=== PATIENT | female | born 1945 | race Caucasian/White ===

== ENCOUNTER 2017-11-18 06:09 | Day surgery (SDC) | payer MEDICARE, OTHER ==
[~2017-11-18 06:09] MED LIST: Sodium Chloride 0.9% 10 ML Syringe FLUSH PRN
[2017-11-18] MEDS ORDERED: fentaNYL 100 MCG/2 ML SDV IV ONE ×2 (06:10→07:18)
[2017-11-18] MEDS ORDERED: Midazolam 1 MG/ML 2 ML SDV IV ONE ×7 (06:10→07:31)
[2017-11-18] MEDS ORDERED: Midazolam 1 MG/ML 2 ML SDV ONE (06:13)
[2017-11-18] MEDS ORDERED: fentaNYL 100 MCG/2 ML SDV ONE (06:13)
[2017-11-18] MEDS ORDERED: Dextrose 5%-0.45% NaCl 1,000 ML IV SCH (07:30)
[2017-11-18 12:02] VITALS: BP 138/63
--- NOTE | 2017-11-18 12:55 | OR ---
DATE: 11/18/2017 PROCEDURE: Total colonoscopy. INSTRUMENT USED: PCF-H180 AL Olympus video colonoscope. PREMEDICATIONS: Fentanyl 100 mcg intravenous, Versed 4 mg intravenous. Nasal O2 cannula. The procedure was done under pulse oximetry, BP recording, and potline monitor. INDICATION: The patient with rectal bleeding. Colonoscopic examination is done for detection of any polypoid lesions and removal, endoscopic hemostasis therapy if needed. DESCRIPTION OF PROCEDURE: Initial rectal exam was unremarkable. Rigid anoscopy showed small internal hemorrhoids without bleeding from them. The colonoscope was passed with ease. Numerous scattered diverticula were noted in the distal left colon along with deformity. The scope was passed with relative ease up to the ileocecal area. Photographs were taken of the normal- appearing cecum identified by landmarks of appendiceal orifice and double-bulged ileocecal folds. There was large amount of fecal material that had to be aspirated here for better visualization. No bleeding was noted from any of the visualized areas at the commencement of the examination. The colon was found to be tortuous and redundant. No stricture. No vascular ectasia. No large isolated ulcerations seen. No evidence of diffuse inflammatory bowel disease in the form of friability, contact bleeding, or ulcerations. No polyp or tumor mass identified. Probing the proximal sides of folds and flexures, using adequate distention and clearing up the stool material, withdrawal of the scope was made. [id number] time over 6 minutes. No bleeding was noted from any of the visualized areas at the completion of examination. IMPRESSION: 1. Internal hemorrhoids. 2. Diverticulosis. The patient tolerated the procedure well. [facility] /[id number]
== END 2017-11-18 09:45 | disposition home or self-care (01) ==
LOC: DL.ENDO 06:09
PROVIDERS: ATTEND Internal Medicine Gastroenterology
DX: K62.5 Hemorrhage of anus and rectum (principal); K64.8 Other hemorrhoids; K57.30 Diverticulosis of large intestine without perforation or abscess without bleeding; I10 Essential (primary) hypertension; E11.9 Type 2 diabetes mellitus without complications; E78.00 Pure hypercholesterolemia, unspecified; E03.9 Hypothyroidism, unspecified; K55.20 Angiodysplasia of colon without hemorrhage; K21.9 Gastro-esophageal reflux disease without esophagitis; M81.0 Age-related osteoporosis without current pathological fracture; M19.90 Unspecified osteoarthritis, unspecified site; Z88.1 Allergy status to other antibiotic agents; Z88.2 Allergy status to sulfonamides; Z88.8 Allergy status to other drugs, medicaments and biological substances; Z90.710 Acquired absence of both cervix and uterus; Z98.890 Other specified postprocedural states; Z80.0 Family history of malignant neoplasm of digestive organs
CPT/HCPCS: 45378; J2250; J3010; J7042

== ENCOUNTER 2021-11-11 05:19 | Day surgery (SDC) | payer MEDICARE, OTHER ==
[~2021-11-11 05:19] MED LIST changes: -Sodium Chloride 0.9% 10 ML Syringe FLUSH PRN; +Sodium Chloride 0.9% 10 ML Syringe FLUSH SCH
[2021-11-11] MEDS ORDERED: Midazolam 1 MG/ML 2 ML SDV IV ONE ×6 (05:20→06:37)
[2021-11-11] MEDS ORDERED: fentaNYL 100 MCG/2 ML SDV IV ONE ×3 (05:20→06:28)
[2021-11-11] MEDS ORDERED: Dextrose 5%-0.45% NaCl 1,000 ML IV SCH (06:00)
[2021-11-11] MEDS ORDERED: Sodium Chloride 0.9% 10 ML Syringe FLUSH PRN (06:00)
[2021-11-11] MEDS ORDERED: Midazolam 1 MG/ML 2 ML SDV ONE (06:12)
[2021-11-11] MEDS ORDERED: fentaNYL 100 MCG/2 ML SDV ONE (06:12)
[2021-11-11 08:56] VITALS: BP 128/50; PULSE 72
== END 2021-11-11 09:00 | disposition home or self-care (01) ==
LOC: DL.ENDO 05:19
PROVIDERS: ATTEND Internal Medicine Gastroenterology
DX: K57.30 Diverticulosis of large intestine without perforation or abscess without bleeding (principal); I10 Essential (primary) hypertension; E11.9 Type 2 diabetes mellitus without complications; K21.9 Gastro-esophageal reflux disease without esophagitis; Z01.812 Encounter for preprocedural laboratory examination; Z20.822 Contact with and (suspected) exposure to COVID-19; Z86.010 Personal history of colon polyps
CPT/HCPCS: J2250; J3010; J7042; U0002

== ENCOUNTER → 2024-01-20 | Day surgery (SDC) | payer MEDICARE, OTHER ==
[~2024-01-20] MED LIST changes: +Dextrose 5%-0.45% NaCl 1,000 ML IV SCH; +Midazolam 1 MG/ML 2 ML SDV IV ONE; +Midazolam 1 MG/ML 2 ML SDV ONE; -Sodium Chloride 0.9% 10 ML Syringe FLUSH SCH; +fentaNYL 100 MCG/2 ML SDV IV ONE; +fentaNYL 100 MCG/2 ML SDV ONE
[2024-01-20] MEDS: fentaNYL 100 MCG/2 ML SDV IV ONE ×2 (07:56→07:57)
[2024-01-20] MEDS: Midazolam 1 MG/ML 2 ML SDV IV ONE ×2 (07:57→07:58)
[2024-01-20 12:07] VITALS: PULSE 80
[2024-01-20 12:08] VITALS: BP 132/65
== END ==
LOC: DL.ENDO 06:30
PROVIDERS: ATTEND Internal Medicine Gastroenterology
DX: K31.7 Polyp of stomach and duodenum (principal); I10 Essential (primary) hypertension; E11.9 Type 2 diabetes mellitus without complications; E78.5 Hyperlipidemia, unspecified; E03.9 Hypothyroidism, unspecified; K21.9 Gastro-esophageal reflux disease without esophagitis; R63.4 Abnormal weight loss; Z68.22 Body mass index [BMI] 22.0-22.9, adult
CPT/HCPCS: 87077; 88305; J2250; J3010

== ENCOUNTER 2024-06-25 16:43 | Emergency (ER) | payer OTHER, MEDICARE ==
[2024-06-25 16:57] LABS: BASOPHILS PERCENT AUTO 0.4 % (0.0-1.0); EOSINOPHILS PERCENT AUTO 0.4 % (1.0-3.0); HEMATOCRIT 40.7 % (37.0-47.0); HEMOGLOBIN 13.7 g/dL (12.0-16.0); LYMPHOCYTES PERCENT AUTO 27.2 % (20.5-50.1); MEAN CORPUSCULAR HEMOGLOBIN 32.3 pg (27.0-34.0); MEAN CORPUSCULAR HGB CONC 33.7 g/dL (33.0-35.0); MONOCYTES PERCENT AUTO 5.4 % (2-8); NEUTROPHILS PERCENT AUTO 66.6 % (42.2-75.2); PLATELET COUNT,PLT 248 10^3/uL (150-450); RED BLOOD CELL COUNT 4.24 10^6/uL (4.2-5.4); WHITE BLOOD CELL COUNT,WBC 7.7 10^3/uL (5.0-10.0)
[2024-06-25 17:13] LABS: PROTHROMBIN TIME 9.9 SEC (9.0-12.0); PTT,PARTIAL THROMBOPLSTIN TIME 22.6 SEC (22.0-34.0)
[2024-06-25 17:16] LABS: A/G RATIO 1.1; ALBUMIN 3.7 g/dL (3.4-5.0); ANION GAP 14.5 mEq/L (7-13); BILIRUBIN TOTAL 0.4 mg/dL (0.2-1.0); CALCIUM 9.1 mg/dL (8.5-10.1); CREATININE 1.04 mg/dL (0.55-1.02); POTASSIUM,K 3.5 mmol/L (3.5-5.1); PROTEIN TOTAL,TP 7.1 g/dL (6.4-8.2)
[2024-06-25 17:18] LABS: EST CRCL DRUG DOSING (CG) 39.12 mL/min; LACTIC ACID 0.8 mmol/L (0.4-2.0)
[2024-06-25 18:27] VITALS: BP 132/59; PULSE 99
== END 2024-06-25 18:00 ==
LOC: DL.ED 16:43
DX: S06.0X0A Concussion without loss of consciousness, initial encounter (principal); M79.601 Pain in right arm; I10 Essential (primary) hypertension; E11.9 Type 2 diabetes mellitus without complications; E78.00 Pure hypercholesterolemia, unspecified; K21.9 Gastro-esophageal reflux disease without esophagitis; M19.90 Unspecified osteoarthritis, unspecified site; E03.9 Hypothyroidism, unspecified; Z90.710 Acquired absence of both cervix and uterus; Z88.0 Allergy status to penicillin; Z88.1 Allergy status to other antibiotic agents; Z88.8 Allergy status to other drugs, medicaments and biological substances; Z79.82 Long term (current) use of aspirin; Z79.4 Long term (current) use of insulin; Z79.890 Hormone replacement therapy; Z79.899 Other long term (current) drug therapy; V89.2XXA Person injured in unspecified motor-vehicle accident, traffic, initial encounter
CPT/HCPCS: 36415; 70450; 71045; 72125; 72170; 80053; 82947; 83605; 85025; 85610; 85730; 99284; 99285